=== PATIENT | male | born 1960 | race Caucasian/White ===

== ENCOUNTER 2023-02-14 04:38 | Day surgery (SDC) | payer OTHER ==
[2023-02-11 11:07] VITALS: BMI 23.0
[2023-02-14 08:33] VITALS: TEMP 97.7
[2023-02-14 09:27] VITALS: BP 125/66; PULSE 62; RESP 12
[2023-02-14] MEDS ORDERED: SIMETHICONE 40 MG/0.6 ML BOTTLE ONE (12:36)
== END 2023-02-14 11:00 | disposition home or self-care (01) ==
LOC: JASU-ENDO 04:38
PROVIDERS: ATTEND Internal Medicine Gastroenterology
PROC: 0DBL8ZX Excision of Transverse Colon, Via Natural or Artificial Opening Endoscopic, Diagnostic (ICD-10-PCS; 2023-02-14)
PROC: 0DBP8ZX Excision of Rectum, Via Natural or Artificial Opening Endoscopic, Diagnostic (ICD-10-PCS; principal; 2023-02-14 08:00)
DX: Z12.11 Encounter for screening for malignant neoplasm of colon (principal); Z86.010 Personal history of colon polyps; Z80.0 Family history of malignant neoplasm of digestive organs; D12.3 Benign neoplasm of transverse colon; K62.1 Rectal polyp; K64.8 Other hemorrhoids
CPT/HCPCS: 88305-TC